=== PATIENT | female | born 1960 ===

== ENCOUNTER 2018-02-28 06:28 | Outpatient (CLI) | payer SELFPAY ==
[2018-02-28 08:59] LABS: HEMOGLOBIN A1C 6.2 % (4.5-6.2)
[2018-02-28 09:29] LABS: CHOL/HDL RATIO 2.41 (0.00-4.99)
== END 2018-02-28 23:59 | disposition home or self-care (01) ==
LOC: HW HEART 06:28
DX: Z13.6 Encounter for screening for cardiovascular disorders (principal); R94.31 Abnormal electrocardiogram [ECG] [EKG]
CPT/HCPCS: 36415